=== PATIENT | male | born 1940 | race Caucasian/White ===

== ENCOUNTER → 2016-10-30 | Outpatient (CLI) | payer MEDICARE, OTHER | END | disposition home or self-care (01) | LOC: GMAL 11:32 | PROVIDERS: ATTEND Family Medicine | DX: D51.3 Other dietary vitamin B12 deficiency anemia (principal); R53.82 Chronic fatigue, unspecified ==

== ENCOUNTER 2016-11-29 01:00 | Day surgery (SDC) | payer MEDICARE, OTHER ==
[2016-11-29] MEDS ORDERED: LACTATED RINGERS 1,000 ML ONE (06:08)
[2016-11-29] MEDS ORDERED: ceFAZolin SODIUM 1 GM VIAL ONE ×2 (06:08→07:29)
[2016-11-29] MEDS ORDERED: SODIUM CHL 0.9% 100ML MINI-BAG 100 ML IVPB ONE (06:09)
[2016-11-29] MEDS ORDERED: LIDOCAINE 1% 50 ML VIAL INJ ONE (06:29)
[2016-11-29] MEDS ORDERED: BUPIVACAINE 0.25% INJ 30 ML VIAL INJ ONE (06:29)
[2016-11-29] MEDS ORDERED: fentaNYL CITRATE INJ 50 MCG/ML AMP ONE (06:50)
[2016-11-29] MEDS ORDERED: SODIUM CHLORIDE 0.9% 250ML 250 ML ONE (07:30)
[2016-11-29] MEDS ORDERED: VANCOMYCIN HCL INJ 1,000 MG VIAL IVPB ONE ×2 (07:30→07:45)
[2016-11-29 08:11] VITALS: TEMP 97.4
[2016-11-29] MEDS ORDERED: HYDROcodone 5MG/APAP 325MG 1 EA TAB ONE (08:45)
[2016-11-29] MEDS ORDERED: HYDROcodone 5MG/APAP 325MG 1 EA TAB PO ONE (09:00)
[2016-11-29 09:32] VITALS: BP 136/88; O2SAT 99
[2016-11-29] MEDS ORDERED: PROPOFOL 200 MG/20 ML VIAL IV ONE (12:00)
[2016-11-29] MEDS ORDERED: LIDOCAINE 1% 10 ML VIAL INJ ONE (12:00)
--- NOTE | 2016-12-07 09:30 | OP ---
DATE OF PROCEDURE: 11/29/16 PREOPERATIVE DIAGNOSIS: 1. Carpal tunnel syndrome. POSTOPERATIVE DIAGNOSIS: 1. Carpal tunnel syndrome. PROCEDURE: 1. Carpal tunnel release. SURGEON: Gary Armstrong MD. PHARMACIST PER DIEM: Barrington Sparks CST, SA-C. ANESTHESIA: Local with sedation. COMPLICATIONS: None. FINDINGS: Thickening of the transverse carpal ligament and narrowing of the median nerve across the carpal tunnel. INDICATION: The patient has a history of symptoms consistent with pain and paresthesias involving the median nerve. Because of ongoing symptoms and failure to get relief with conservative measures, the patient has requested operative intervention. After discussing the risks, benefits and alternatives to operative intervention, the patient has given informed consent for carpal tunnel release. PROCEDURE: The patient was brought to the Operating Room and placed in the supine position. Sedation was administered and local anesthetic was injected into the operative area under sterile conditions. After the injection of anesthetic, the arm was sterilely prepped and draped. A longitudinal incision was made directly overlying the transverse carpal ligament and blunt dissection was carried down to the ligament. The transverse carpal ligament was sharply transected along its length and a Coulter elevator was used to ensure complete release of the ligament. Once release had been confirmed, the wound was thoroughly irrigated and the wound was closed with Nylon suture. A sterile dressing was placed and the patient was taken to the Day Surgery Unit. POSTOPERATIVE INSTRUCTIONS: The patient will be doing range of motion of the digits and followup with us in about two days. #[id number] [facility]
== END 2016-11-29 09:25 | disposition home or self-care (01) ==
LOC: AMB 01:00
PROVIDERS: ATTEND Orthopaedic Surgery
DX: G56.01 Carpal tunnel syndrome, right upper limb (principal); Z88.6 Allergy status to analgesic agent; Z88.5 Allergy status to narcotic agent
CPT/HCPCS: 01810; 64721; 87070; J0690; J3010; J3370; J3490; J7050; J7120

== ENCOUNTER → 2017-05-22 | Outpatient (CLI) | payer MEDICARE, OTHER | END | disposition home or self-care (01) | LOC: GMA 11:07 | PROVIDERS: ATTEND Family Medicine | DX: Z12.5 Encounter for screening for malignant neoplasm of prostate (principal); E55.9 Vitamin D deficiency, unspecified | CPT/HCPCS: 82306; G0103 ==

== ENCOUNTER 2017-08-15 08:13 | Day surgery (SDC) | payer MEDICARE, OTHER ==
[~2017-08-15 08:13] MED LIST: LACTATED RINGERS 1,000 ML ONE
[2017-08-15] MEDS ORDERED: fentaNYL CITRATE INJ 50 MCG/ML AMP ONE (08:18)
--- NOTE | 2017-08-15 08:59 | OP ---
DATE OF PROCEDURE: 08/15/17 PREPROCEDURE DIAGNOSIS: 1. History of polyps. 2. Surveillance colonoscopy. POSTPROCEDURE DIAGNOSIS: 1. Large internal hemorrhoids. PROCEDURE: 1. Colonoscopy. SURGEON: Royal Grover MD SEDATION: The patient was sedated via IV propofol by the Anesthesia Department. COMPLICATIONS: No immediate complications. CONSENT: Prior to the procedure, risks, benefits and alternatives to the therapy were discussed with the patient. The risks included bleeding, infection , perforation and . The patient agreed to the procedure and signed a consent. Preprocedure anesthesia assessment and examination revealed no contraindication to sedation. Airway examination demonstrated a Mallampati class type 2, ASA grade assessment type 2. Throughout the procedure, the patient's blood pressure , pulse and oxygen saturation were monitored continuously. PROCEDURE: The patient was placed in the left lateral decubitus position and a rectal examination was performed. The rectal examination was within normal limits. The Olympus colonoscope was passed in the anus, rectum, traversing the colon to the level of the cecum as identified by the appendiceal orifice. The scope was retracted and the mucosa was visualized. The entirety of the exam was performed with direct visualization. Retroflexion was performed in the rectum. Preparation quality was good. The withdrawal time was greater than 6 minutes. The patient tolerated the procedure well. FINDINGS: 1. Large, non-bleeding internal hemorrhoids were seen in retroflexion. 2. The remainder of the exam of the colon was unremarkable. IMPRESSION: 1. Large, non-bleeding internal hemorrhoids. 2. Otherwise, normal endoscopic examination of the colon. RECOMMENDATION: 1. Return home. 2. Resume previous diet. 3. Resume previous medication regimen. 4. Repeat colonoscopy in five years given the history of colonic adenomas in the past. 5. Return to my clinic (Dr. Pineda) in case of development of any GI symptoms or issues. 6. Findings were discussed with the patient and his family members. #[id number] [facility]
[2017-08-15] MEDS ORDERED: PROPOFOL 200 MG/20 ML VIAL IV ONE (10:00)
[2017-08-15] MEDS ORDERED: LIDOCAINE 1% 10 ML VIAL INJ ONE (10:00)
[2017-08-15 11:34] VITALS: BP 128/77; TEMP 97.9; O2SAT 100
== END 2017-08-15 09:40 | disposition home or self-care (01) ==
LOC: AMB 08:13
PROVIDERS: ATTEND Internal Medicine Gastroenterology
DX: Z12.11 Encounter for screening for malignant neoplasm of colon (principal); K64.8 Other hemorrhoids; E78.00 Pure hypercholesterolemia, unspecified; I10 Essential (primary) hypertension; K21.9 Gastro-esophageal reflux disease without esophagitis; Z86.010 Personal history of colon polyps; Z88.8 Allergy status to other drugs, medicaments and biological substances; Z79.899 Other long term (current) drug therapy
CPT/HCPCS: 00810; G0105; J3010; J3490; J7120

== ENCOUNTER → 2017-08-22 | Outpatient (CLI) | payer MEDICARE, OTHER ==
--- NOTE | 2017-08-23 01:24 | MRI ---
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 PROCEDURE: MR LUMBAR SPINE WITHOUT IV CONTRAST. INDICATION: LOW BACK PAIN. COMPARISON: MRI lumbar spine from 2012. TECHNIQUE: Multiplanar T1 and T2 MRI images of the lumbar spine were acquired without administration of intravenous contrast. FINDINGS: There is mild levocurvature of the lumbar spine. The lumbar vertebral bodies demonstrate normal height and stature. There is mild right endplate edema at L2 likely secondary to levocurvature. Mild/moderate intervertebral disc space height loss seen throughout the lumbar spine. Marrow signal is otherwise unremarkable. The conus terminates at the level of L1-L2. The cauda equina nerve roots are unremarkable. The partially visualized thoracic cord is normal. L1-L2: Mild right eccentric disc bulge without spinal canal stenosis. Mild facet arthropathy resulting in mild right foraminal narrowing. No significant left foraminal stenosis. L2-L3: Mild disc bulge and ligamentous hypertrophy without spinal canal stenosis. Mild bilateral facet arthropathy without foraminal stenosis. L3-L4: Disc bulge with osteophytic spurring and ligamentous hypertrophy contributes to mild/moderate spinal canal stenosis. Moderate facet arthropathy contributes to moderate bilateral foraminal stenoses. Effacement of both lateral recesses. L4-L5: Mild disc bulge and ligamentous hypertrophy contributes to mild narrowing of the spinal canal. Mild bilateral facet arthropathy results in severe left and mild right foraminal stenoses. L5-S1: Mild disc bulge and ligamentous hypertrophy without spinal canal stenosis. Moderate bilateral facet arthropathy contributes to severe left and moderate right foraminal stenoses. The partially visualized abdominal pelvic organs are unremarkable. IMPRESSION: Moderate multilevel degenerative changes of the lumbar spine superimposed on mild levocurvature. Mild/moderate spinal canal stenosis at L3-4 secondary to a disc bulge and osteophytic spurring as well as ligamentous hypertrophy. Facet arthropathy contributes to severe left foraminal stenosis at L4-L5 and L5-S1. Moderate right foraminal stenosis L5-S1. Moderate bilateral foraminal stenosis L3-L4. Electronically signed by: Mikel Sullivan MD 08/23/2017 1:23 AM [facility]
== END | disposition home or self-care (01) ==
LOC: MRI 11:31
PROVIDERS: ATTEND Family Medicine
DX: M48.07 Spinal stenosis, lumbosacral region (principal)

== ENCOUNTER → 2017-11-28 | Outpatient (CLI) | payer MEDICARE, OTHER | LOC: GMAL 11:13 | PROVIDERS: ATTEND Family Medicine | DX: R53.82 Chronic fatigue, unspecified (principal); Z79.899 Other long term (current) drug therapy ==

== ENCOUNTER 2018-03-20 00:39 | Emergency (ER) | payer MEDICARE ==
[2018-03-20] MEDS ORDERED: ASPIRIN TABLET 325 MG TAB ONE (00:40)
[2018-03-20] MEDS ORDERED: ASPIRIN (CHEWABLE) 81 MG TAB ONE (00:41)
[2018-03-20] MEDS ORDERED: ASPIRIN TABLET 325 MG TAB PO ONE (00:42)
[2018-03-20] MEDS ORDERED: NITROGLYCERIN 0.4 MG 25 EA TAB SL ONE ×2 (00:45→00:48)
[2018-03-20 00:56] VITALS: O2SAT 95
[2018-03-20] MEDS ORDERED: TENECTEPLASE 50 MG VIAL ONE (01:02)
[2018-03-20] MEDS ORDERED: TENECTEPLASE 50 MG VIAL IV ONE (01:07)
[2018-03-20] MEDS ORDERED: HEPARIN PREMIX 25,000 UNITS in PREMIX BAG 1 BAG IVS SCH (01:15)
[2018-03-20] MEDS ORDERED: HEPARIN PREMIX 500 ML ONE (01:15)
[2018-03-20] MEDS ORDERED: HEPARIN SODIUM (PORCINE) 10,000 UNITS/ML VIAL ONE (01:16)
[2018-03-20] MEDS ORDERED: HEPARIN SODIUM (PORCINE) 5,000 U/ML VIAL ONE (01:17)
[2018-03-20] MEDS ORDERED: NITROGLYCERIN/D5W IV 250 ML IVS ONE (01:18)
[2018-03-20] MEDS ORDERED: SODIUM CHLORIDE 0.9% 1000ML 1,000 ML ONE (01:22)
--- NOTE | 2018-03-20 01:24 | ED.PDOC ---
History of Present Illness - General Chief Complaint: Chest Pain/MA Stated Complaint: chest pain Time Seen by Provider: 03/20/18 00:42 Source: patient Exam Limitations: no limitations - History of Present Illness Initial Comments: The patient is a 77-year-old male presenting to the emergency room secondary to chest pain starting 30 minutes prior to arrival. It woke him up from sleep. It was severe at a 10 out of 10. He has not had this chest pain before. No palpitations. No syncope or near syncope. There is a central type chest pain. It does cause shortness of breath. It is not worse with movement.he reports no history of any cardiac problems in the past though he has seen Dr. Hopkins 10 years ago apparently for a left bundle-branch block. Left bundle-branch block was seen on an EKG here in 2012 but [address] segment elevation on that Ekg. he does have a history of hypertension. He reports no bleeding problems. No strokes. He had a distant ulcer more than 6 or 7 years ago. Timing/Duration: 1/2 hour Severity: severe Improving Factors: nothing Worsening Factors: nothing Associated Symptoms: chest pain, shortness of breath Allergies/Adverse Reactions: Allergies Diazepam [From Valium] Allergy (Severe, Unverified 03/17/13 13:11) Home Medications: Ambulatory Orders Alprazolam 0.5 mg PO HS 03/19/13 Metoprolol Tartrate 50 mg PO BID 03/19/13 Mirtazapine 30 mg PO HS 03/19/13 Omeprazole 20 mg PO BEDTIME 03/19/13 Pravastatin Sodium [(None)] 20 mg PO HS 03/19/13 Temazepam 15 mg PO HS 03/19/13 tiZANidine [Zanaflex] 4 mg PO PRN 03/19/13 Lisinopril [Prinivil] 10 mg PO DAILY 08/17/16 Pregabalin [Lyrica] 100 mg PO DAILY 08/17/16 Tamsulosin [Flomax] 0.4 mg PO DAILY 08/17/16 HYDROcodone 5MG/APAP 325MG [[place] 5/325] 0 ea PO .Q4H #30 tab 11/29/16 Review of Systems - Review of Systems Constitutional: States: no symptoms reported EENTM: States: no symptoms reported Respiratory: States: short of breath Cardiology: States: chest pain. Denies: edema, palpitations Gastrointestinal/Abdominal: States: no symptoms reported Genitourinary: States: no symptoms reported Musculoskeletal: States: no symptoms reported Skin: States: no symptoms reported Neurological: States: no symptoms reported Endocrine: States: no symptoms reported All other Systems: No Change from Baseline Past Medical History (General) - Patient Medical History Hx Congestive Heart Failure: No Hx Hypertension: Yes Hx Diabetes: No Hx MRSA: No Surgical History: no surgical history - Vaccination History Immunizations Up to Date: Yes - Triage Comment ED Triage Comment: 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 No radiation, no vomiting. Family Medical History - Family History Father Family History: Unknown Physical Exam - Physical Exam General Appearance: Alert, Anxious, Obvious distress Eye Exam: bilateral normal Ears, Nose, Throat: hearing grossly normal, normal ENT inspection, normal pharynx Neck: full range of motion, supple Respiratory: lungs clear, normal breath sounds, no respiratory distress, no accessory muscle use Cardiovascular/Chest: normal peripheral pulses, regular rate, rhythm, no edema Peripheral Pulses: radial,right: 2+, radial,left: 2+, dorsalis pedis,right: 2+, dorsalis pedis,left: 2+, posterior tibialis,right: 2+, posterior tibialis,left: 2+ Gastrointestinal/Abdominal: non tender, soft Rectal Exam: deferred Back Exam: normal inspection, no CVA tenderness, no vertebral tenderness Extremity: normal range of motion, non-tender, normal inspection, no pedal edema , normal capillary refill 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 Progress - Progress Progress: 03/20/18 01:29 the patient is a 77-year-old male presenting to the emergency room with what appears to be an ST elevation myocardial infarction indicated in his anterior leads. The patient was deemed a fair candidate for lytic therapy and the patient was discussed with Dr. Rubi. The patient received a dose of TNKase, and heparin bolus, aspirin and to oral nitroglycerin and then was started on nitroglycerin drip. EKGs did show some improvement after the TNKase though he is still having some chest pain. He is of course receiving oxygen as well. Blood pressures have improved with the nitroglycerin down to a systolic blood pressure in the 130s range. The patient is being transferred for higher level of care and likely interventional cardiology. Still pending at this time as the d-dimer and the final read on the chest x-ray. Opiate pain medications may yet be required though we are titrating up the nitroglycerin. 03/20/18 01:31 critical care time spent on this patient with not otherwise billable procedures is 45 minutes. - Results/Orders Results/Orders: 03/20/18 00:42 Telemetry .CONTINUOUS normal sinus rhythm D-DIMER,QUANTITATIVE Stat still pending at this time 03/20/18 00:43 EKG Assessment ONCE Chest,1 View [RAD] Stat final read is pending though I see no evidence of any effusion or overt fluid overload. I see no evidence of any focal infiltrates or mass. 03/20/18 00:45 EKG STAT initial EKG shows normal sinus rhythm at a rate of 65 bpm. Normal corrected QT interval. He does have a left bundle branch block and there are significant ST segment elevations in leads V1 through V5. He did have a left bundle branch block on his EKG from 2012 however there were [address] ST segment elevations. there is mild ST segment depression in leads 3 and aVF.chest pain was rated at a 10 out of 10 with this EKG repeat EKGs approximately 20 minute intervals show significant improvement in the ST segment elevations in anterior leads.chest pain had decreased to approximately a 6 out of 10 with the repeat EKGs after the nitroglycerin. Laboratory Results - last 24 hr 03/20/18 03/20/18 03/20/18 00:42 00:43 00:43 WBC 9.1 RBC 4.99 Hgb 15.1 Hct 44.7 MCV 89.7 MCH 30.3 MCHC 33.8 RDW 12.7 Plt Count 279 MPV 6.7 L Absolute Neuts (auto) 4.80 Absolute Lymphs (auto) 2.70 Absolute Monos (auto) 0.80 Absolute Eos (auto) 0.60 H Absolute Basos (auto) 0.10 Neutrophils % 53.4 Lymphocytes % 30.0 Monocytes % 9.0 Eosinophils % 6.9 H Basophils % 0.7 PT 9.3 INR 0.93 PTT (SP) 23.0 Sodium 140 Potassium 4.2 Chloride 109 Carbon Dioxide 27 Anion Gap 8.2 L BUN 21 H Creatinine 1.33 H BUN/Creatinine Ratio 15.8 Random Glucose 98 Serum Osmolality 282.3 Calcium 9.0 Total Bilirubin 0.5 AST 24 ALT 31 Alkaline Phosphatase 73 Creatine Kinase 58 CK-MB (CK-2) 2.2 CK-MB (CK-2) % Not Reportable Troponin I 0.01 B-Natriuretic Peptide 13.9 Serum Total Protein 7.1 Albumin 4.1 Globulin 3.0 Albumin/Globulin Ratio 1.4 Departure - Departure Clinical Impression: STEMI (ST elevation myocardial infarction) Qualifiers: Involved coronary artery: unspecified coronary artery Qualified Code(s): I21.3 - ST elevation (STEMI) myocardial infarction of unspecified site Disposition: Transfer to Hospital Condition: Serious Departure Forms: ED Discharge - Pt. Copy, Patient Portal Self Enrollment Home Medications: Ambulatory Orders Alprazolam 0.5 mg PO HS 03/19/13 Metoprolol Tartrate 50 mg PO BID 03/19/13 Mirtazapine 30 mg PO HS 03/19/13 Omeprazole 20 mg PO BEDTIME 03/19/13 Pravastatin Sodium [(None)] 20 mg PO HS 03/19/13 Temazepam 15 mg PO HS 03/19/13 tiZANidine [Zanaflex] 4 mg PO PRN 03/19/13 Lisinopril [Prinivil] 10 mg PO DAILY 08/17/16 Pregabalin [Lyrica] 100 mg PO DAILY 08/17/16 Tamsulosin [Flomax] 0.4 mg PO DAILY 08/17/16 HYDROcodone 5MG/APAP 325MG [[place] 5/325] 0 ea PO .Q4H #30 tab 11/29/16 Transfer to Outside Facility - Transfer Information Accepting Provider:: dr bowers/dr ribeiro Accepting Facility: [facility] 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
[2018-03-20 01:29] VITALS: BP 130/76; TEMP 97.7
[2018-03-20] MEDS ORDERED: SODIUM CHLORIDE 0.9% 1000ML 1,000 ML IVS PRN (01:30)
[2018-03-20] MEDS ORDERED: NITROGLYCERIN/D5W IV 50,000 MCG in PREMIX BOTTLE 1 BOTTLE IVS SCH (01:30)
--- NOTE | 2018-03-20 01:31 | RAD ---
EXAM: AP CHEST RADIOGRAPH CLINICAL INDICATION: Acute chest pain. COMPARISON: Compared to the chest radiographs of March 17, 2013. FINDINGS: Cardiac size is not the upper limits of normal. New bibasilar pulmonary congestion. The lungs are otherwise clear. No pleural effusions or pneumothorax. Bones appear intact on this single view. IMPRESSION: Mild pulmonary congestion. No pneumothorax. Electronically signed by: Alejo Cardona MD 03/20/2018 1:29 AM CDT
== END 2018-03-20 01:50 | disposition short-term general hospital (02) ==
LOC: ER 00:39
DX: I21.3 ST elevation (STEMI) myocardial infarction of unspecified site (principal); I10 Essential (primary) hypertension; R06.02 Shortness of breath; I44.7 Left bundle-branch block, unspecified
CPT/HCPCS: 36415; 71045; 80053; 82550; 82553; 83880; 84484; 85025; 85379; 85610; 85730; 93005; J1644; J3101; J7030

== ENCOUNTER → 2019-04-16 | Outpatient (CLI) | payer MEDICARE | LOC: GMAL 10:25 | PROVIDERS: ATTEND Family Medicine | DX: D51.3 Other dietary vitamin B12 deficiency anemia (principal); Z12.5 Encounter for screening for malignant neoplasm of prostate; R53.82 Chronic fatigue, unspecified; E55.9 Vitamin D deficiency, unspecified; I10 Essential (primary) hypertension; E78.2 Mixed hyperlipidemia | CPT/HCPCS: 82306; 82607; 84443; G0103 ==

== ENCOUNTER → 2020-07-09 | Outpatient (CLI) | payer MEDICARE | LOC: GMAL 13:22 | PROVIDERS: ATTEND Family Medicine | DX: D51.3 Other dietary vitamin B12 deficiency anemia (principal); I10 Essential (primary) hypertension; R53.82 Chronic fatigue, unspecified; E55.9 Vitamin D deficiency, unspecified; E78.2 Mixed hyperlipidemia; Z79.899 Other long term (current) drug therapy ==

== ENCOUNTER → 2020-08-13 | Outpatient (CLI) | payer MEDICARE ==
--- NOTE | 2020-08-15 16:50 | MRI ---
EXAM DESCRIPTION: Lumbar Spine w/o Contrast : Magnetic Resonance Imaging. CLINICAL HISTORY: LOW BACK PAIN COMPARISON: Noncontrast MRI lumbar spine August 2017. TECHNIQUE: Multiplanar, multiple standard sequences, non contrast MRI, lumbar spine. FINDINGS: L5-S1: The disc is well visualized on axial T2 series 501, image 3. Moderate disc space loss through the left with advanced endplate reactive changes and disc spur complex projecting in the left foramen and the left L5 nerve. Posterior broad-based disc based bulge. Hypertrophic changes in the posterior flavum ligaments and facet joints (canal elements. AP canal diameter 12 mm. Stable since the prior study. L4-L5: And disc desiccation and Mild disc space loss on the right with advanced spondylosis and disc space loss left. Disc osteophyte complex encroaching on the left foramen and impinging the left L4 nerve. Mild right foraminal narrowing. Hypertrophic changes in the canal elements. AP canal diameter 8.3 millimeters. No interval change since the prior study. L3-L4: Disc desiccation and minimal disc space loss on the left. Minimal disc bulge into the foramen with moderate narrowing. Advanced spondylosis on the right with endplate reactive changes and disc spur complex encroaching on the right causing foraminal stenosis. Possible compromise right L3 nerve. No change from the prior study. L2-L3: Disc desiccation and minimal disc space loss. Central gas formation or calcification. Old injury anterior superior L3 endplate with displaced bone fragment and disc bulge. Posterior disc bulge and grade 1 anterolisthesis 2 mm. Minimal hypertrophic changes in the canal elements. AP canal diameter 12 mm. Bilateral [id number] foraminal narrowing. Stable since the prior study. L1-L2: Disc desiccation and minimal to moderate disc space loss on the left. Bone Schmorl's node in superior L2. Moderate endplate reactive changes on the right and disc spur complex encroaching on the foramen with moderate to severe narrowing. Minimal posterior bulge. Canal patent. No interval change from the prior study. T12-L1: Disc desiccation and minimal disc space loss. Schmorl's node inferior T12. Minimal anterior bulge of the disc. Canal elements are unremarkable. Canal and foramina are patent. Conus terminates at this level. No change from the prior study. T12-L3 LEVOscoliosis and L4-S1 dextroscoliosis. Paravertebral soft tissues paraspinal fatty muscle atrophy.. Distal cord normal signal and caliber. Otherwise normal marrow signal in the remaining vertebral bodies and the posterior elements. Vertebral bodies are not compressed at any level. IMPRESSION: 1. Multilevel disc desiccation, degenerative scoliosis, and multilevel bilateral facet hypertrophic arthrosis and ligament thickening contributing to canal and foraminal narrowing. Essentially no change since the prior study. 2. Left side spondylosis L5-S1 with disc spur complex encroaching on the left foramen and the left L5 nerve stable since the prior study. 3. Left-sided spondylosis at L4-L5 with disc spur complex encroaching on the left foramen and the left L4 nerve [place] interval change since the prior study. 4. Please refer to FINDINGS for discussion of results of specific disc space levels Electronically signed by: Barrington Muir MD 08/15/2020 4:49 PM [facility]
== END ==
LOC: MRI 11:14
PROVIDERS: ATTEND Family Medicine
DX: M51.36 Other intervertebral disc degeneration, lumbar region (principal); M51.35 Other intervertebral disc degeneration, thoracolumbar region; M41.9 Scoliosis, unspecified; M47.896 Other spondylosis, lumbar region; M47.897 Other spondylosis, lumbosacral region; M24.28 Disorder of ligament, vertebrae; M25.78 Osteophyte, vertebrae